=== PATIENT | female | born 1990 | race Caucasian/White ===

== ENCOUNTER 2019-02-23 11:28 | Emergency (ER) | payer OTHER ==
[~2019-02-23] VITALS: Ht 167.6 cm; Wt 59.0 kg
== END 2019-02-23 16:18 | disposition home or self-care (01) ==
LOC: ER 11:28
DX: S62.637A Displaced fracture of distal phalanx of left little finger, initial encounter for closed fracture (principal); W22.8XXA Striking against or struck by other objects, initial encounter; Y93.89 Activity, other specified; Y92.26 Movie house or cinema as the place of occurrence of the external cause; Y99.8 Other external cause status